=== PATIENT | female | born 2000 | race Caucasian/White ===

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

== ENCOUNTER 2023-12-15 22:05 | Emergency (ER) | payer OTHER, SELFPAY ==
[2023-12-15 22:14] VITALS: BP 141/86; PULSE 73; RESP 16; TEMP 36.7; O2SAT 99; BMI 39.4
--- NOTE | 2023-12-15 22:22 | ED.GENADULT ---
HPI - General Adult General Chief complaint: General Medical Stated complaint: possibly , pinkish urine Time Seen by Provider: 12/16/23 01:14 Source: patient Mode of arrival: ambulatory Limitations: no limitations History of Present Illness HPI narrative: Patient 23 years old never been usually have irregular menstruation LMP was 1/10 noticed slight spotting today with mild suprapubic discomfort no blood clots checked test at home which was positive 3 times. Related Data Allergies Allergy/AdvReac Type Severity Reaction Status Date / Time No Known Allergies Allergy Verified 05/31/21 22:20 Review of Systems Review of Systems: Yes all other systems are reviewed and are negative [facility] Past Medical History Medical History Hyperthyroidism Social History Social History Alcohol intake: current Alcohol intake frequency: holidays/special occasions only Smoked in Last 30 Days: No Use of substances other than those prescribed or required for medical reasons: No Advance Directives: No Advance Directives Information Provided: Yes Patient : Yes Physical Exam ED Vital Signs: Vital Signs - 24 hr 12/15/23 22:14 12/16/23 01:27 Temperature 98.0 F 98.9 F Pulse Rate 73 77 Respiratory Rate 16 16 Blood Pressure 141/86 H 114/76 Pulse Oximetry 99 98 Oxygen Delivery Method Room Air Room Air BMI result Body Mass Index 39.4 Appearance: Alert. Oriented X3. No acute distress. Eyes: No pallor or ENT: Pharynx normal. Oral Mucosa moist Neck: Normal inspection. Neck supple. CVS: Normal heart rate and rhythm. Pulses normal. Respiratory: No respiratory distress. Equal air entry bilateral, no wheezing/rales/rhonchi Abdomen: Soft and nontender. Bowel sounds are present, no mass palpable, no CVA tenderness Skin: Skin warm and dry. Normal skin color. Normal skin turgor. Extremities: No lower extremity edema. No calf tenderness Neuro: Oriented X 3. Course Course Course Narrative: RME performed by Linsey Dotson PA-C. Patient is a 23 year old assigned female at presenting to the emergency department with lower abdominal pain and possible . Detailed physical exam and review of systems are deferred to the county extension agent. Labs ordered. Patient placed back in the waiting room pending room availability and results. Medical Decision Making Medical Decision Making [facility] Narrative: Patient is likely 7-8 weeks with beta HCG [id number] without any significant suprapubic tenderness. Will do ABO typing patient will follow-up with for OBG as outpatient. Patient advised to report to the ER if worsening of the pain or bleeding Differential Diagnosis Differential Diagnoses: The differential diagnosis associated with the presentation includes /miscarriage Lab Data [facility] Lab Attestation statement: I reviewed the patient's lab results. 12/15/23 22:37 12/15/23 22:37 Labs: Lab Results 12/15/23 12/16/23 Range/Units 22:37 01:49 WBC 7.9 (4.8-10.8) X10*3/uL RBC 4.69 (4.20-5.50) X10*6/uL Hgb 12.8 (12.0-16.0) g/dl Hct 38.5 (37.0-47.0) % MCV 82.1 (80.0-98.0) fL MCH 27.3 (27.0-33.0) pg MCHC 33.2 (31.0-35.0) g/dl RDW 12.8 (11.0-16.0) % Plt Count 277 (160-400) X10*3/uL MPV 9.4 (9.4-12.3) fL Immature Gran % (Auto) 0.3 (0.0-0.4) % Neut % (Auto) 45.9 (45-73) % Lymph % (Auto) 41.6 H (20-40) % Mingo % (Auto) 9.5 (2-11) % Eos % (Auto) 1.8 (0-4) % Baso % (Auto) 0.9 (0-2) % Lymph # (Auto) 3.3 (1.2-4.9) X10*3/uL Mingo # (Auto) 0.8 (0.1-1.2) X10*3/uL Eos # (Auto) 0.1 (0.0-0.4) X10*3/uL Baso # (Auto) 0.1 (0.0-0.2) X10*3/uL Abs Immat Gran (auto) 0.02 (0.00-0.03) X10*3/uL Absolute Neuts (auto) 3.7 (2.0-8.3) x10*3/uL Absolute Nucleated RBC 0.000 (0.0-0.012) X10*3/uL Nucleated RBC % (auto) 0.0 (0.0-0.2) /100WBC Sodium 139 (135-145) mmol/L Potassium 4.3 (3.3-5.1) mmol/L Chloride 108 (96-108) mmol/L Carbon Dioxide 24 (22-29) mmol/L Anion Gap 11 L (12-20) BUN 13 (9-16) mg/dL Creatinine 0.70 (0.5-1.4) mg/dL Estim Creat Clear Calc 144.2 Estimated GFR > 60 Random Glucose 96 (60-115) mg/dL Calcium 10.1 (8.4-10.2) mg/dL Magnesium 1.9 (1.6-2.6) mg/dL Total Bilirubin 0.2 (0.0-1.0) mg/dL AST 17 (5-31) U/L ALT 17 (0-31) U/L Alkaline Phosphatase 80 (39-117) U/L Total Protein 7.2 (6.5-8.0) g/dL Albumin 4.1 (3.5-5.0) g/dL Beta HCG, Quant 83035 mIU/mL Urine Color Yellow Urine Appearance Clear Urine pH 5.5 (5.0-9.0) Ur Specific Lincoln 1.025 (1.005-1.025) Urine Protein Negative (Neg-Trace) mg/dL Urine Glucose (UA) Negative (Negative) mg/dL Urine Ketones Negative (Negative) mg/dL Urine Blood Small (1+) H (Negative) Urine Nitrite Negative (Negative) Ur Leukocyte Esterase Negative (Negative) Urine RBC 3-5 H (0-2) /HPF Urine WBC 0-5 (0-5) /HPF Ur Squamous Epith Cells 6-10 (0-2) /HPF Urine Bacteria 1+ (None Seen) Hyaline Casts 0-2 (0-2) /LPF Blood Type O Positive Discharge Plan Discharge Clinical Impression: First trimester Patient Disposition: Home, Self-Care Instructions: at 7 to 10 Weeks (ED) Additional Instructions: Follow-up with safety trainer for the Report to the ER if increased pelvic pain or bleed Interventions: ED Discharge Assessment Last Done: 12/16/23 02:57 Discharge Date/Time: 12/16/23 02:57
[2023-12-15 22:42] LABS: MANUAL DIFF FLAG NO
[2023-12-15 22:44] LABS: Basophils Absolute Auto 0.1 X10*3/uL (0.0-0.2); Basophils Percent Auto 0.9 % (0-2); Eosinophils Absolute Auto 0.1 X10*3/uL (0.0-0.4); Eosinophils Percent Auto 1.8 % (0-4); Hematocrit 38.5 % (37.0-47.0); Hemoglobin 12.8 g/dl (12.0-16.0); Imm Gran Abs Auto 0.02 X10*3/uL (0.00-0.03); Imm Gran Pct Auto 0.3 % (0.0-0.4); Lymphocytes Absolute Auto 3.3 X10*3/uL (1.2-4.9); Lymphocytes Percent Auto 41.6 % (20-40); Mean Corpuscular HGB Conc 33.2 g/dl (31.0-35.0); Mean Corpuscular Hemoglobin 27.3 pg (27.0-33.0); Mean Corpuscular Volume 82.1 fL (80.0-98.0); Mean Platelet Volume 9.4 fL (9.4-12.3); Monocytes Absolute Auto 0.8 X10*3/uL (0.1-1.2); Monocytes Percent Auto 9.5 % (2-11); Neutrophils Absolute Auto 3.7 x10*3/uL (2.0-8.3); Neutrophils Percent Auto 45.9 % (45-73); Platelet Count 277 X10*3/uL (160-400); Red Blood Count 4.69 X10*6/uL (4.20-5.50); Red Cell Distribution Width 12.8 % (11.0-16.0); White Blood Count 7.9 X10*3/uL (4.8-10.8)
[2023-12-15 22:49] LABS: Appearance Urine Clear; Color Urine Yellow; Glucose Urine UA Negative (Negative); Leukocyte Esterase Urine Negative (Negative); Nitrite Urine Negative (Negative); PH 5.5 (5.0-9.0); Specific Gravity - Urine 1.025 (1.005-1.025); UMIC TRIGGER UACC YES; Urine Blood Small (1+) (Negative); Urine Ketones Negative (Negative); Urine Protein Negative (Neg-Trace)
[2023-12-15 23:13] LABS: Alanine Aminotransferase 17 U/L (0-31); Albumin Level 4.1 g/dL (3.5-5.0); Alkaline Phosphatase 80 U/L (39-117); Anion Gap 11 (12-20); Aspartate Amino Transferase 17 U/L (5-31); Bilirubin Total 0.2 mg/dL (0.0-1.0); Blood Urea Nitrogen 13 mg/dL (9-16); Calcium 10.1 mg/dL (8.4-10.2); Carbon Dioxide 24 mmol/L (22-29); Chloride 108 mmol/L (96-108); Creatinine Clr Calc Pharmacy 144.2; Estimated Glomerular Filt Rate > 60; Glucose Random 96 mg/dL (60-115); Magnesium 1.9 mg/dL (1.6-2.6); Potassium 4.3 mmol/L (3.3-5.1); Sodium 139 mmol/L (135-145); Total Protein 7.2 g/dL (6.5-8.0)
[2023-12-15 23:17] LABS: Bacteria Urine 1+ (None Seen); Hyaline Casts Urine 0-2 /LPF (0-2); WBC Urine 0-5 /HPF (0-5)
[2023-12-15 23:34] LABS: HCG Quantitative 42690 mIU/mL
[2023-12-16 01:27] VITALS: BP 114/76; PULSE 77; RESP 16; TEMP 37.2; O2SAT 98
== END 2023-12-16 02:57 | disposition home or self-care (01) ==
PROVIDERS: Physician Assistant Medical; Emergency Provider Internal Medicine
DX: O20.9 Hemorrhage in early pregnancy, unspecified (principal); R10.33 Periumbilical pain; Z3A.01 Less than 8 weeks gestation of pregnancy; Z79.899 Other long term (current) drug therapy
CPT/HCPCS: 36415; 80053; 81001; 83735; 84702; 85025; 86900; 86901; 99283; 99284

== ENCOUNTER 2024-04-11 15:27 | Emergency (ER) | payer OTHER, SELFPAY ==
[2024-04-11 16:28] VITALS: BP 128/72; PULSE 92; RESP 17; TEMP 36.8; O2SAT 98; BMI 42.8
--- OUTSIDE RECORDS SUMMARY | 2024-04-11 18:49 | XMS_ITS | Continuity of Care Document ---
Author Organization [facility] Pediatric E ndocrinology Address [address] [place] [address]- Care Team Providers Care Learning And Development Administrator Name Role Phone Jessie Dye MD Primary Care Physician Encounter [facility] Date(s): 05/30/20 - 06/29/20 [facility] Pediatric Endocrinology [address] [place] [address] [facility] Attending Physician: Elva Abebe Admitting Physician: Elva Abebe Referring Physician: AdmtrElva Allergies, Adverse Reactions, Alerts Substance Reaction Severity Status NKA Active Medications levothyroxine 0.137 mg oral tablet 1 tablet = 137 mcg, By Mouth, Daily, # 90 tablet, 11 Refills, Maintenance, 06/28/20 15:22:00 EDT, Tablet, [facility][id number], 156.3, cm, 05/04/19 13:12:00 EDT, Height, 84.9, kg, 05/04/19 13:12:00 EDT, Dry Weight Start Date: 06/28/20 Stop Date: 06/23/21 Status: Ordered TriNessa Maintenance, 03/18/18 8:44:24 EDT Start Date: 03/18/18 Status: Ordered Problem List Condition Effective Dates Status Health Status Inform ant Acquired hypothyroidism(Confirmed) Active Obesity, pediatric, 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
--- OUTSIDE RECORDS SUMMARY | 2024-04-11 18:49 | XMS_ITS | Continuity of Care Document ---
Author Organization [facility] Endocrinolo gy and Diabetes Address [address] [place] [address]- Care Team Providers Care Fire Technology Instructor Name Role Phone Jessie Dye MD Primary Care Physician Encounter [facility] Date(s): 04/18/22 - 05/18/22 [facility] Endocrinology and Diabetes [address] [place] [id number] Allergies, Adverse Reactions, Alerts No Known Allergies Medications levothyroxine 175 mcg (0.175 mg) oral tablet 1 tablet = 175 mcg, By Mouth, Daily, # 30 tablet, 11 Refills, Maintenance, 04/18/22 15:27:00 EDT, Tablet, [facility] #[id number], Partial fill upon patient request if the prescription is for a schedule II opioid drug., 158.6, cm, 04/15/22 11:52:0... 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
--- OUTSIDE RECORDS SUMMARY | 2024-04-11 18:49 | XMS_ITS | Continuity of Care Document ---
Author Organization [facility] Address [address] [place] [address]- Care Team Providers Care Supervisor Paper Testing Name Role Phone Hector IVY, Fabian Darby Primary Care Physician [facility] [facility] Date(s): 02/22/24 - 03/23/24 [facility] [employer] [employer] [facility] [address] [place] [address]- Allergies, Adverse Reactions, Alerts No Known Allergies Medications aspirin 81 mg oral delayed release tablet 2 tablet = 162 mg, By Mouth, Daily, # 90 tablet, 0 Refills, Maintenance, 01/13/24 12:13:00 EDT, CR Tablet, [id number], Partial fill upon patient request if the prescription is for a schedule II opioid drug., 158, cm, 01/13/24 12:22:00... Start Date: 01/13/24 Status: Ordered aspirin 81 mg oral delayed release tablet 162 mg, 2, tablet, By Mouth, Daily, # 60 tablet, Refills 11, Tot. Refills 11, Maintenance, 03/13/2414:14:00 EDT, Route to Pharmacy Electronically, [id number], Partial fill upon patient request if the prescription is for a schedule II opi... Start Date: 03/13/24 Status: Ordered doxylamine 25 mg oral tablet 1 tablet = 25 mg, By Mouth, Daily, Take one tablet before bed. May take additional tablet in the morning if nausea still persistent, # 60 tablet, 8 Refills, Maintenance, 01/13/24 12:39:00 EDT, [id number], Partial fill upon patient req... Start Date: 01/13/24 Status: Ordered levothyroxine 0.112 mg oral tablet 2 tablet = 224 mcg, By Mouth, Daily, # 60 tablet, 3 Refills, Maintenance, 03/14/24 8:27:00 EDT, Tablet, [id number], Partial fill upon patient request if the prescription is for a schedule II opioid drug., 158, cm, 03/13/24 13:57:00 EDT, H... Start Date: 03/14/24 Status: Ordered levothyroxine 175 mcg (0.175 mg) oral tablet 1 tablet = 175 mcg, By Mouth, Daily, # 90 tablet, 1 Refills, Maintenance, 09/02/23 12:53:00 EST, Tablet, [facility] #[id number], Partial fill upon patient request if the prescription is for a schedule II opioid drug., 158.6, cm, 04/15/22 11:52:00... Start Date: 09/02/23 Status: Ordered Prena1 By Mouth, Daily, 0 Refills, Maintenance, 01/13/24 12:23:00 EDT, Partial fill upon patient request if the prescription is for a schedule II opioid drug. Start Date: 01/13/24 Status: Ordered pyridoxine 25 mg oral tablet 1 tablet = 25 mg, By Mouth, 3 times a day, PRN Nausea & Vomiting, # 100 tablet, 8 Refills, Maintenance, 01/13/24 12:39:00 EDT, [facility] #[id number], Partial fill upon patient request if the prescription is for a schedule II opioid drug., 158, c... Start Date: 01/13/24 Status: Ordered TriNessa Maintenance, 03/18/18 8:44:24 EDT Start Date: 03/18/18 Status: Ordered Problem List Condition Confirmation Course Effective Dates Status H ealth Status Informant Acquired hypothyroidism Confirmed Active H/O Anxiety Confirmed Active Ovarian cyst in Confirmed Active Severe obesity Confirmed Active Social History Social History Type Response Smoking Status Never smoker entered on: 03/18/18 Sex Patient Care team information Care Team Personnel Name: Fabian Young MD Position: [facility] Physician - Pediatrics Member Role: PCP Address: Address: [address] [place] [address] [place] [address]- Care Team Related Persons Name: VIVI GAXIOLA Address: home [address] [place] [id number] Name: JOHANNA TELLES Address: [address] [address]
--- OUTSIDE RECORDS SUMMARY | 2024-04-11 18:49 | XMS_ITS | Continuity of Care Document ---
Author Organization [facility] Pediatric E ndocrinology Address [address] [place] [address]- Care Team Providers Care Industrial Truck Driver Name Role Phone Jessie Dye MD Primary Care Physician [phone] Encounter [facility] Date(s): 05/06/20 - 06/05/20 [facility] Pediatric Endocrinology [address] [place] [address]- [facility] Allergies, Adverse Reactions, Alerts Substance Reaction Severity Status NKA Active Medications levothyroxine 0.137 mg oral tablet 1 tablet = 137 mcg, By Mouth, Daily, # 30 tablet, 0 Refills, Maintenance, 05/09/20 9:39:00 EDT, Tablet, [facility] #[id number], 156.3, cm, 05/04/19 13:12:00 EDT, Height, 84.9, kg, 05/04/19 13:12:00 EDT, Dry Weight Start Date: 05/09/20 Stop Date: 06/08/20 Status: Ordered TriNessa Maintenance, 03/18/18 8:44:24 EDT Start Date: 03/18/18 Status: Ordered Problem List Condition Effective Dates Status Health Status Inform ant Acquired hypothyroidism(Confirmed) Active Obesity, pediatric, 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
--- OUTSIDE RECORDS SUMMARY | 2024-04-11 18:49 | XMS_ITS | Continuity of Care Document ---
Author Organization [facility] Address [address] [place] [address]- Care Team Providers Care Cigarette And Filter Chief Inspector Name Role Phone Fabian Young MD Primary Care Physician [phone] Encounter [facility] [id number] Date(s): 02/01/24 - 03/02/24 [facility] [address] [place] [id number] Allergies, Adverse Reactions, Alerts No Known Allergies Medications aspirin 81 mg oral delayed release tablet 2 tablet = 162 mg, By Mouth, Daily, # 90 tablet, 0 Refills, Maintenance, 01/13/24 12:13:00 EDT, CR Tablet, [facility][id number], Partial fill upon patient request if the prescription is for a schedule II opioid drug., 158, cm, 01/13/24 12:22:00... Start Date: 01/13/24 Status: Ordered doxylamine 25 mg oral tablet 1 tablet = 25 mg, By Mouth, Daily, Take one tablet before bed. May take additional tablet in the morning if nausea still persistent, # 60 tablet, 8 Refills, Maintenance, 01/13/24 12:39:00 EDT, [facility] #[id number], Partial fill upon patient req... Start Date: 01/13/24 Status: Ordered levothyroxine 175 mcg (0.175 mg) oral tablet 1 tablet = 175 mcg, By Mouth, Daily, # 90 tablet, 1 Refills, Maintenance, 09/02/23 12:53:00 EST, Tablet, [facility] #[id number], Partial fill upon patient request if the [...] tablet, 8 Refills, Maintenance, 01/13/24 12:39:00 EDT, [facility] #[id number], Partial fill upon patient request if the [...] Care team information Care Team Personnel Name: Hector IVY, Fabian Darby Position: [facility] Physician - Pediatrics Member Role: PCP Address: Address: [address] [place] [address] [place] [address]- Care Team Related Persons Name: VIVI GAXIOLA Address: home [address] [place] [address] Name: JOHANNA TELLES Address: home [address] [place] [address]
--- OUTSIDE RECORDS SUMMARY | 2024-04-11 18:49 | XMS_ITS | Continuity of Care Document ---
Author Organization [facility] Pediatric E ndocrinology Address [address] [place] [address]- Care Team Providers Care Medical Staff Manager Name Role Phone Jessie Dye MD Primary Care Physician [phone] Encounter [facility] Date(s): 03/04/22 - 04/03/22 [facility] Pediatric Endocrinology [address] [place] [address]- [place] Allergies, Adverse Reactions, Alerts No Known Allergies Medications levothyroxine 150 mcg (0.15 mg) oral tablet 1 tablet = 150 mcg, By Mouth, Daily, # 30 tablet, 1 Refills, Maintenance, 03/04/22 11:36:00 EDT, Tablet, [facility] #[id number], Partial fill upon patient request if the prescription is for a schedule II opioid drug. 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
--- OUTSIDE RECORDS SUMMARY | 2024-04-11 18:49 | XMS_ITS | Continuity of Care Document ---
Author Organization [facility] Address [address] [place] [address]- Care Team Providers Care Hotel Administrative Assistant Name Role Phone Fabian Young MD Primary Care Physician [phone] [place] [facility] [place] 01/19/24 - 02/18/[address] [address]- Allergies, Adverse Reactions, Alerts No Known Allergies Medications aspirin 81 mg oral delayed release tablet 2 tablet = 162 mg, By Mouth, Daily, # 90 tablet, 0 Refills, Maintenance, 01/13/24 12:13:00 EDT, CR Tablet, [facility] #[id number], Partial fill upon patient request if the prescription is for a schedule II opioid drug., 158, cm, 01/13/24 12:22:00... Start Date: 01/13/24 Status: Ordered doxylamine 25 mg oral tablet 1 tablet = 25 mg, By Mouth, Daily, Take one tablet before bed. May take additional tablet in the morning if nausea still persistent, # 60 tablet, 8 Refills, Maintenance, 01/13/24 12:39:00 EDT, [facility] #[id number], Partial fill upon patient req... Start Date: 01/13/24 Status: Ordered levothyroxine 175 mcg (0.175 mg) oral tablet 1 tablet = 175 mcg, By Mouth, Daily, # 90 tablet, 1 Refills, Maintenance, 09/02/23 12:53:00 EST, Tablet, [facility] #[id number], Partial fill upon patient request if the [...] tablet, 8 Refills, Maintenance, 01/13/24 12:39:00 EDT, [facility] #[id number], Partial fill upon patient request if the [...] Personnel Name: Hector IVY, Fabian Darby Position: [facility] Physician - Pediatrics Member Role: PCP Address: Address: [address] [place] [address] [place] [address]- Care Team Related Persons Name: VIVI GAXIOLA Address: [address] [place] [address] Name: JOHANNA TELLES Address: [address] [place] [address]
--- OUTSIDE RECORDS SUMMARY | 2024-04-11 18:49 | XMS_ITS | Continuity of Care Document ---
Author Organization [facility] Address [address] [place] [address]- Care Team Providers Care Transmission System Operator Name Role Phone Jessie Dye MD Primary Care Physician [place] [facility] [place] 04/15/22 - 05/15/22 [facility] [address] [place] [address]- Attending Physician: Elva Abebe Admitting Physician: Elva Abebe Referring Physician: Elva Abebe Allergies, Adverse Reactions, Alerts No Known Allergies Medications levothyroxine 175 mcg (0.175 mg) oral tablet 1 tablet = 175 mcg, By Mouth, Daily, # 30 tablet, 11 Refills, Maintenance, 04/18/22 15:27:00 EDT, Tablet, [facility] #[id number], Partial fill upon patient request if the [...]
--- OUTSIDE RECORDS SUMMARY | 2024-04-11 18:49 | XMS_ITS | Continuity of Care Document ---
Author Organization [facility] Address [address] [place] [address]- Care Team Providers Care Blanket Inspector Name Role Phone Jessie Dye MD Primary Care Physician [phone] [place] [facility] [place] 05/30/20 - 06/06/20 [facility] [address] [place] [address]- [facility] Attending Physician: Magali Reardon DO Allergies, Adverse Reactions, Alerts Substance Reaction Severity Status NKA Active Medications levothyroxine 0.137 mg oral tablet 1 tablet = 137 mcg, By Mouth, Daily, # 30 tablet, 0 Refills, Maintenance, 05/09/20 9:39:00 EDT, Tablet, [facility] #[id number], 156.3, cm, 05/04/19 13:12:00 EDT, Height, 84.9, [...]
--- OUTSIDE RECORDS SUMMARY | 2024-04-11 18:49 | XMS_ITS | Continuity of Care Document ---
Author Organization [facility] Address [address] [place] [address]- Care Team Providers Care Highway Engineering Teacher Name Role Phone Jessie Dye MD Primary Care Physician [phone] [place] [facility] [place] 02[place]03[place]21 - 03/05/21 [facility] [address] [place] [address]- Attending Physician: Elva Abebe Admitting Physician: Elva Abebe Referring Physician: [id number] Allergies, Adverse Reactions, Alerts Substance Reaction Severity Status NKA Active Medications levothyroxine 150 mcg (0.15 mg) oral tablet 1 tablet = 150 mcg, By Mouth, Daily, # 30 tablet, 11 Refills, Maintenance, 02/03/21 10:56:00 EDT, Tablet, [facility] #[id number], Partial fill upon patient request if the prescription is for a schedule II opioid drug., 156.3, cm, 05/04/19 13:12:0... 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
--- OUTSIDE RECORDS SUMMARY | 2024-04-11 18:49 | XMS_ITS | Continuity of Care Document ---
Author Organization [facility] Address [address] [place] [address]- Care Team Providers Care Thermal Technician Name Role Phone Fabian Young MD Primary Care Physician [place] [facility] [place] - 01/08/[address] [address]- Allergies, Adverse Reactions, Alerts No Known Allergies Medications levothyroxine 175 mcg (0.175 mg) oral tablet 1 tablet = 175 mcg, By Mouth, Daily, # 90 tablet, 1 Refills, Maintenance, 09/02/23 12:53:00 EST, Tablet, [facility] #[id number], Partial fill upon patient request if the prescription is for a schedule II opioid drug., 158.6, cm, 04/15/22 11:52:00... Start Date: 09/02/23 Status: Ordered TriNessa Maintenance, 03/18/18 8:44:24 EDT Start Date: 03/18/18 Status: Ordered Problem List Condition Confirmation Course Effective Dates Status H ealth Status Informant Acquired hypothyroidism Confirmed Active H/O Anxiety Confirmed Active Severe obesity Confirmed Active Social History Social History Type Response Smoking Status Never smoker entered on: 03/18/18 Sex Patient Care team information Care Team Personnel Name: Fabian Young MD Position: S Physician - Pediatrics Member Role: PCP Address: Address: [address] [place] [address] [place] [address]- Care Team Related Persons Name: VIVI GAXIOLA Address: [address] [place] [address] Name: JOHANNA TELLES Address: [address] [place] [address]
--- OUTSIDE RECORDS SUMMARY | 2024-04-11 18:49 | XMS_ITS | Continuity of Care Document ---
Author Organization [facility] Address [address] [place] [address]- Care Team Providers Care Tin Can Feeder Name Role Phone Fabian Young MD Primary Care Physician [place] [facility] [place] 12/30/23 - 01/29/[address] [address]- Allergies, Adverse Reactions, Alerts No Known Allergies Medications aspirin 81 mg oral delayed release tablet 2 tablet = 162 mg, By Mouth, Daily, # 90 tablet, 0 Refills, Maintenance, 01/13/24 12:13:00 EDT, CR Tablet, [facility] #[id number], Partial fill upon patient request if the prescription is for a schedule II opioid drug., 158, cm, 01/13/24 12:22:00... Start Date: 01/13/24 Status: Ordered doxylamine 25 mg oral tablet 1 tablet = 25 mg, By Mouth, Daily, Take one tablet before bed. May take additional tablet in the morning if nausea still persistent, # 60 tablet, 8 Refills, Maintenance, 01/13/24 12:39:00 EDT, [facility] #[id number], Partial fill upon patient req... Start Date: 01/13/24 Status: Ordered levothyroxine 175 mcg (0.175 mg) oral tablet 1 tablet = 175 mcg, By Mouth, Daily, # 90 tablet, 1 Refills, Maintenance, 09/02/23 12:53:00 EST, Tablet, [facility] #[id number], Partial fill upon patient request if the [...] tablet, 8 Refills, Maintenance, 01/13/24 12:39:00 EDT, [facility] #[id number], Partial fill upon patient request if the [...] Team Personnel Name: Fabian Young MD Position: [facility] Physician - Pediatrics Member Role: PCP Address: Address: [address] [place] [address] [place] [address]- Care Team Related Persons Name: VIVI GAXIOLA Address: [address] [place] [address] Name: JOHANNA TELLES Address: [address] [place] [address]
--- OUTSIDE RECORDS SUMMARY | 2024-04-11 18:49 | XMS_ITS | Continuity of Care Document ---
Author Organization [facility] Address [address] [facility] [place] [address]- Care Team Providers Care Base Remover Name Role Phone Hector IVY, Fabian Darby Primary Care Physician Encounter [facility] [place] Date(s): 01/14/24 - 02/13/24 [facility] [employer] [address] [facility] [facility] [place] [address]- Allergies, Adverse Reactions, Alerts No Known Allergies Medications aspirin 81 mg oral delayed release tablet 2 tablet = 162 mg, By Mouth, Daily, # 90 tablet, 0 Refills, Maintenance, 01/13/24 12:13:00 EDT, CR Tablet, [facility] #[id number], Partial fill upon patient request if the prescription is for a schedule II opioid drug., 158, cm, 01/13/24 12:22:00... Start Date: 01/13/24 Status: Ordered doxylamine 25 mg oral tablet 1 tablet = 25 mg, By Mouth, Daily, Take one tablet before bed. May take additional tablet in the morning if nausea still persistent, # 60 tablet, 8 Refills, Maintenance, 01/13/24 12:39:00 EDT, [facility] #[id number], Partial fill upon patient req... Start Date: 01/13/24 Status: Ordered levothyroxine 175 mcg (0.175 mg) oral tablet 1 tablet = 175 mcg, By Mouth, Daily, # 90 tablet, 1 Refills, Maintenance, 09/02/23 12:53:00 EST, Tablet, [facility] #[id number], Partial fill upon patient request if the prescription is for a schedule II opioid drug., 158.6, cm, 07/13/22 11:52:00... Start Date: 09/02/23 Status: Ordered Prena1 [...] tablet, 8 Refills, Maintenance, 01/13/24 12:39:00 EDT, [facility] #[id number], Partial fill upon patient request if the [...] Team Personnel Name: Fabian Young MD Position: [facility] Physician - Pediatrics Member Role: PCP Address: Address: [address] [place] [address] [place] [address]- Care Team Related Persons Name: VIVI GAXIOLA Address: [address] [place] [address] Name: JOHANNA TELLES Address: [address] [place] [address]
--- OUTSIDE RECORDS SUMMARY | 2024-04-11 18:49 | XMS_ITS | Continuity of Care Document ---
Author Organization [facility] Address [address] [place] [address]- Care Team Providers Care Aquatics Director Name Role Phone Not on Staff, PCP Primary Care Physician Unavail able Encounter [facility] [place] Date(s): 10/11/23 - 11/10/23 [facility] [address] [place] [address]- Attending Physician: Elva Abebe Admitting Physician: Elva Abebe Referring Physician: Elva Abebe Allergies, Adverse Reactions, Alerts No Known Allergies Medications levothyroxine 175 mcg (0.175 mg) oral tablet 1 tablet = 175 mcg, By Mouth, Daily, # 90 tablet, 1 Refills, Maintenance, 09/02/23 12:53:00 EST, Tablet, [facility] #[id number], Partial fill upon patient request if the prescription is for a schedule II opioid drug., 158.6, cm, 04/15/22 11:52:00... Start Date: 09/02/23 Status: Ordered TriNessa Maintenance, 03/18/18 8:44:24 EDT Start Date: 03/18/18 Status: Ordered Problem List Condition Confirmation Course Effective Dates Status H ealth Status Informant Acquired hypothyroidism Confirmed Active Obesity, pediatric, BMI 95th to 98th percentile for age Confirmed Active Severe obesity Confirmed Active Social History Social History Type Response Smoking Status Never smoker entered on: 03/18/18 Sex Patient Care team information Care Team Personnel Name: Not on Staff, PCP Position: S Physician (General Medicine) Member Role: PCP Care Team Related Persons Name: VIVI GAXIOLA Address: [address] [place] [address] Name: JOHANNA TELLES Address: [address] [place] [address]
--- OUTSIDE RECORDS SUMMARY | 2024-04-11 18:49 | XMS_ITS | Continuity of Care Document ---
Author Organization [facility] Address [address] [place] [address]- Care Team Providers Care Power System Dispatcher Name Role Phone Not on Staff, PCP Primary Care Physician Unavail able [place] [facility] [place] 10/01/23 [facility] [address] [place] [address]- [place] Allergies, Adverse Reactions, Alerts No Known Allergies Medications levothyroxine 175 mcg (0.175 mg) oral tablet 1 tablet = 175 mcg, By Mouth, Daily, # 90 tablet, 1 Refills, Maintenance, 09/02/23 12:53:00 EST, Tablet, [facility] #[id number], Partial fill upon patient request if the prescription is for a schedule II opioid drug., 158.6, cm, 04/15/22 11:52:00... Start Date: 09/02/23 Status: Ordered TriNessa Maintenance, 03/18/18 8:44:24 EDT Start Date: 03/18/18 Status: Ordered Problem List Condition Confirmation Course Effective Dates Status H ealth Status Informant Acquired hypothyroidism Confirmed Active Obesity, pediatric, BMI 95th to 98th percentile for age Confirmed Active Social History Social History Type Response Smoking Status Never smoker entered on: 03/18/18 Sex Patient Care team information Care Team Personnel Name: Not on Staff, PCP Position: S Physician (General Medicine) Member Role: PCP Care Team Related Persons Name: VIVI GAXIOLA Address: [address] [place] [address] Name: JOHANNA TELLES Address: home [address] [place] [address]
--- OUTSIDE RECORDS SUMMARY | 2024-04-11 18:49 | XMS_ITS | Continuity of Care Document ---
Author Organization [facility] Address [address] [place] [address]- Care Team Providers Care Fur Stylist Name Role Phone Jessie Dye MD Primary Care Physician Encounter [facility] [place] Date(s): 04/18/22 - 05/18/22 [facility] [address] [place] [address]- [place] Allergies, Adverse Reactions, Alerts No Known Allergies Medications levothyroxine 175 mcg (0.175 mg) oral tablet 1 tablet = 175 mcg, By Mouth, Daily, # 30 tablet, 11 Refills, Maintenance, 04/18/22 15:27:00 EDT, Tablet, [facility] #[id number], Partial fill upon patient request if the [...]
== END 2024-04-11 21:42 | disposition left against medical advice (07) ==
PROVIDERS: Emergency Provider Emergency Medicine
DX: R42 Dizziness and giddiness (principal); O26.892 Other specified pregnancy related conditions, second trimester; Z53.21 Procedure and treatment not carried out due to patient leaving prior to being seen by health care provider
CPT/HCPCS: 99281